=== PATIENT | male | born 1995 | race Caucasian/White ===

== ENCOUNTER 2020-07-23 15:34 | Emergency (ER) | payer OTHER ==
[~2020-07-23] VITALS: Ht 185.4 cm; Wt 105.0 kg
[2020-07-23 16:05] VITALS: BP 155/123
--- NOTE | 2020-07-23 16:05 | NUR ---
ASSUMED CARE OF THIS PT. MAGDY WITH L2K FROM [facility] FOR MED CLEARANCE (DISORGANIZED THOUGHTS, PARANOIA, SI- NO SPECIFIC PLAN, RESPONDS TO INTERNAL STIMULI- SPONTANEOUS LAUGHING), HX SCHITZOPRENIA; PT CHANGED INTO GOWN- ALL PERSONAL BELONGINGS X1 BAG PLACED IN LOCKER; PT RESTLESS BUT COOPERATIVE, FREQUENT LAUGHTER NOTED; PT IN SAFE ENVIRONMENT, SITTER IN VIEW.
[2020-07-23 17:00] LABS: BASOPHILS % (AUTO) 1 % (0-1); EOSINOPHILS % (AUTO) 1 % (1-7); LYMPHOCYTES % (AUTO) 17 % (22-44); MEAN CORPUSCULAR HEMOGLOBIN 29.2 pg (27.5-34.5); MEAN CORPUSCULAR HGB CONC 33.8 g/dL (33.2-36.2); MEAN PLATELET VOLUME 8.2 fL (7.4-10.4); MONOCYTES % (AUTO) 5 % (2-9); NEUTROPHILS % (AUTO) 76 % (42-75); PLATELET COUNT 358 x10^3/uL (130-400); RED BLOOD COUNT 5.73 x10^6/uL (4.38-5.82)
[2020-07-23 17:01] LABS: MD NO
[2020-07-23 17:03] LABS: AMPHETAMINE SCREEN, URINE Negative (Negative); BARBITURATE SCREEN, URINE Negative (Negative); BENZODIAZEPINE SCREEN, URINE Negative (Negative); CANNABINOID SCREEN, URINE Negative (Negative); COCAINE SCREEN, URINE Negative (Negative); METHADONE SCREEN, URINE Negative (Negative); OPIATE SCREEN, URINE Negative (Negative)
--- NOTE | 2020-07-23 17:05 | NUR ---
PT LAYING ON GURNEY LISTENING TO TV, COOPERATIVE BUT CONTINUES TO BE RESTLESS AT TIMES, NAD, COMFORT MEASURES PROVIDED, PT REMAINS IN SAFE ENVIRONMENT, SITTER IN VIEW.
[2020-07-23 17:13] LABS: ALBUMIN 4.4 g/dL (3.4-5.0); ANION GAP 6 mmol/L (5-15); CALCIUM 9.3 mg/dL (8.5-10.1); CHLORIDE 107 mmol/L (98-107); SALICYLATE LEVEL 3.1 mg/dL (2.8-20.0)
[2020-07-23 17:18] LABS: ALANINE AMINOTRANSFERASE 60 U/L (12-78); ALKALINE PHOSPHATASE 94 U/L (45-117); BILIRUBIN,TOTAL 0.4 mg/dL (0.2-1.0); TOTAL PROTEIN 8.4 g/dL (6.4-8.2)
--- NOTE | 2020-07-23 18:26 | NUR ---
RECEIVED SBAR REPORT FROM [facility]. PT LAYING ON GURNEY, GARAGE DOORS DOWN X2. SITTER AT DOORWAY FOR SAFETY.
--- NOTE | 2020-07-23 18:44 | NUR ---
SBAR REPORT GIVEN TO JORDAN
== END 2020-07-23 19:34 ==
LOC: ED 17:47
DX: F23 Brief psychotic disorder (principal)
CPT/HCPCS: 36415; 80053; 80164; 80178; 80299; 80307; 80320; 80329; 85025; 99285; G0480